=== PATIENT | male | born 1990 | race African-American/Black ===

== ENCOUNTER 2024-06-11 23:58 | Emergency (ER) | payer MEDICAID ==
[~2024-06-11] VITALS: Ht 175.3 cm; Wt 82.0 kg
[2024-06-12 00:11] VITALS: O2SAT 99
[2024-06-12] MEDS ORDERED: LIDOCAINE HCL/EPINEPHRINE 1%-EPI 1:100,000 50ML VIAL INFIL ONE (00:30)
[2024-06-12 00:46] VITALS: TEMP 36.89184; O2SAT 99
[2024-06-12] MEDS: LIDOCAINE HCL/EPINEPHRINE 1%-EPI 1:100,000 20ML VIAL INFIL NR (01:22)
[2024-06-12] MEDS: BACITRACIN ZINC OINT UDPKT TOP ONE (01:22)
[2024-06-12] MEDS: TETANUS, DIPHTHERIA, PERTUSSIS VAC/PF 0.5ML (>10YR OLD) IM ONE (01:23)
[2024-06-12 01:34] VITALS: BP 106/47; PULSE 101; RESP 15
[2024-06-12] MEDS: HYDROCODONE/ACETAMINOPHEN 5/325MG TABLET PO ONE (01:34)
[2024-06-12] MEDS: CEPHALEXIN 250MG CAPSULE PO ONE (01:35)
[2024-06-12] MEDS ORDERED: HYDR-4001 MT (02:46)
[2024-06-12] MEDS ORDERED: NAPR-420 MT (02:46)
[2024-06-12] MEDS ORDERED: CEPH500C2 MT (02:46)
== END 2024-06-12 03:35 | disposition home or self-care (01) ==
LOC: ER 23:58
DX: S81.812A Laceration without foreign body, left lower leg, initial encounter (principal); Z00.00 Encounter for general adult medical examination without abnormal findings; Y04.0XXA Assault by unarmed brawl or fight, initial encounter; Y93.89 Activity, other specified; Y92.89 Other specified places as the place of occurrence of the external cause; Y99.8 Other external cause status
CPT/HCPCS: 99283; 12002; 82962; 73590; J3490